=== PATIENT | female | born 1955 | race Caucasian/White ===

== ENCOUNTER 2017-11-15 15:13 | Emergency (ER) | payer MEDICARE ==
[2017-11-25 12:01] VITALS: BMI 34.3
== END 2017-11-15 17:30 | disposition home or self-care (01) ==
LOC: D.ER 15:13
DX: M25.552 Pain in left hip (principal); W19.XXXA Unspecified fall, initial encounter; Y93.89 Activity, other specified; Y92.019 Unspecified place in single-family (private) house as the place of occurrence of the external cause

== ENCOUNTER 2017-11-18 12:01 | Inpatient (IN) | payer MEDICARE ==
[~2017-11-18] VITALS: Ht 170.2 cm; Wt 99.5 kg
[2017-11-18 15:21] LABS: BASOPHILS 0.1 % (0-2); EOSINOPHILS 2.3 % (0-7); HEMATOCRIT 43.5 % (36.0-48.0); HEMOGLOBIN 14.5 g/dL (12-16); IMMATURE GRANULOCYTES 0.2 % (0-5); LYMPHOCYTES 12.8 % (15-50); MCH 32.6 pg (26.0-34.0); MCHC 33.3 g/dL (31.0-37.0); MCV 97.8 fL (80.0-100.0); MEAN PLATELET VOLUME 10.5 fL (7.4-10.4); MONOCYTES 5.5 % (2-11); NEUTROPHILS 79.1 % (40-80); PLATELET COUNT 216 10x3/uL (130-400); RBC 4.45 10x6/uL (4.00-5.40); RDW 13.4 % (11.5-14.5); WBC 12.8 10x3/uL (4.8-10.8)
[2017-11-18 15:29] LABS: APTT 28.4 SECONDS (22.8-39.4); INR 1.02 (0.85-1.17)
[2017-11-18 15:36] LABS: ALBUMIN 3.6 g/dL (3.4-5.0); ALKALINE PHOSPHATASE 84 U/L (46-116); ALT (SGPT) 35 U/L (10-68); BILIRUBIN - TOTAL 0.42 mg/dL (0.2-1.3); CALC OSMOLALITY 282 mosm/kg (275-300); CALCIUM 9.9 mg/dL (8.5-10.1); CARBON DIOXIDE 28.9 mmol/L (21.0-32.0); CHLORIDE - SERUM 104 mmol/L (98-107); CREATININE - SERUM 0.6 mg/dL (0.6-1.3); GLUCOSE 106 mg/dL (74-106); POTASSIUM - SERUM 3.6 mmol/L (3.5-5.1); PROTEIN - SERUM 7.6 g/dL (6.4-8.2); SODIUM 142 mmol/L (136-145); UREA NITROGEN 13 mg/dL (7-18); eGFR NON AFRICAN AMERICAN > 90 mL/min (90-120)
[2017-11-18] MEDS ORDERED: ATIVAN0.5 MG PO (18:07)
[2017-11-18] MEDS ORDERED: ZOLOFT100 MG PO (18:09)
[2017-11-18] MEDS ORDERED: ASCORBIC ACID500 MG PO (18:10)
[2017-11-18] MEDS ORDERED: K-DUR20 MEQ PO (18:20)
[2017-11-18] MEDS ORDERED: DETROL LA4 MG PO (18:20)
[2017-11-18] MEDS ORDERED: FER-IN-SOL DROP50 ML PO (18:21)
[2017-11-18] MEDS ORDERED: SINEQUAN25 MG PO (18:21)
[2017-11-18] MEDS ORDERED: FUROSEMIDE40 MG PO (18:22)
[2017-11-18] MEDS ORDERED: BENADRYL25 MG PO (18:23)
[2017-11-19] VITALS (10 sets, daily range): BP systolic 103–128; BP diastolic 62–84; Ht 170.2 cm; Wt 99.5 kg
[2017-11-19 06:33] LABS: BASOPHILS 0.1 % (0-2); EOSINOPHILS 0 % (0-7); HEMATOCRIT 39.4 % (36.0-48.0); HEMOGLOBIN 12.8 g/dL (12-16); IMMATURE GRANULOCYTES 0.4 % (0-5); LYMPHOCYTES 3.7 % (15-50); MCH 32.4 pg (26.0-34.0); MCHC 32.5 g/dL (31.0-37.0); MCV 99.7 fL (80.0-100.0); MEAN PLATELET VOLUME 10.5 fL (7.4-10.4); NEUTROPHILS 92.8 % (40-80); PLATELET COUNT 205 10x3/uL (130-400); RBC 3.95 10x6/uL (4.00-5.40); RDW 13.6 % (11.5-14.5); WBC 13.9 10x3/uL (4.8-10.8)
[2017-11-19 06:53] LABS: CALCIUM 9.3 mg/dL (8.5-10.1); CARBON DIOXIDE 28.4 mmol/L (21.0-32.0); CHLORIDE - SERUM 105 mmol/L (98-107); POTASSIUM - SERUM 3.8 mmol/L (3.5-5.1); SODIUM 141 mmol/L (136-145); UREA NITROGEN 15 mg/dL (7-18); eGFR NON AFRICAN AMERICAN 77 mL/min (90-120)
[2017-11-19 07:01] LABS: CALC OSMOLALITY 288 mosm/kg (275-300); CREATININE - SERUM 0.8 mg/dL (0.6-1.3); GLUCOSE 224 mg/dL (74-106)
--- NOTE | 2017-11-19 14:49 | OP ---
PATIENT NAME: KJ BRADLEY B MEDICAL RECORD: [id number] :57 LOCATION:[facility] D.2312 ADMISSION DATE:11/18/17 SURGEON: JE HILTON DO DATE OF OPERATION: 11/18/2017 DATE OF SURGERIES: Began 11/18/2017 and finished on 11/19/2017. PROCEDURE PERFORMED: Left femur retrograde IM nail. PREOPERATIVE DIAGNOSIS: Displaced left distal femur fracture. POSTOPERATIVE DIAGNOSIS: Displaced left distal femur fracture. INDICATIONS: Ms. Bradley is a 61-year-old female who lives alone; however, she does have some special needs, she does have caretakers mostly during the day. She fell today and fractured her distal femur on the left side. She is in significant amount of pain and was taken to the ER. After this was done, the patient was seen to have a femur fracture and as discussed planned to get it fixed. She will be nonweightbearing on it. SURGEON: Je Hilton DO COMPLICATIONS: None. BLOOD LOSS: Approximately 300 mL. DESCRIPTION OF PROCEDURE: The patient was taken to the operative suite, laid in supine position, given general anesthetic. The left lower extremity was prepped and draped in sterile fashion. After this was done, a timeout was performed, it was agreed to correct side, site, and patient. We then commenced imaging to get a closed reduction, which was not successful. I then did an incision from the inferior border of the patella straight down through the patellar tendon and then excised the fat pad. We got a starting point on the distal femur that it was in good position with the guide pin and then a reduction tool was used to get the reduction. After this was done, the guide wire was then placed up to the lesser trochanter and a measurement was made to be 320 mm nail. We then reamed up to a 12 and put the nail in, the fracture displaced. We then reamed higher and then start to put a smaller nail in. First nail was 10.5 and then I put a 9 nail in and the fracture did not displace as much. I got a distal screw in and due to the fracture, it was the only screw we can put in. We then tried to hold the reduction and get a proximal screw, which was not achieved and we did open the incision and then put a clamp over the fracture site to get it somewhat reduced. Once this was done, a proximal screw was then put in the nail. After the proximal screw was put in nail, a cable was placed around the fracture site in order to get a better reduction at the fracture site. This was very comminuted. After getting the cable tightened down and crimped down, I had a better reduction than previous to putting the cable. X-rays were taken and confirmed this. The opening to reduce the fracture was on the lateral side of the femur. We then irrigated thoroughly all the incision sites. The wound inferiorly to the patellar tendon itself was closed with 0 Vicryl in the paratenon and then the skin was closed with 2-0 Vicryl in inverted interrupted fashion and 4-0 Monocryl in a horizontal mattress fashion. The large incision on the lateral side was irrigated thoroughly and vancomycin powder was put into it and then the IT band was closed with 0 Vicryl in a [id number] fashion and then the skin was closed with 2-0 Vicryl inverted interrupted and then a OPERATIVE REPORT [id number] KJ BRADLEY B ZipLine was placed over that. The other focal incisions were closed with 2-0 Vicryl in inverted interrupted fashion and then 4-0 Monocryl in a horizontal mattress fashion. They were then dressed with Adaptic, 4 x 4s and Tegaderm and then over the ZipLine on the lateral side with Adaptic, 4 x 4s and Tegaderm as well. We then put a 6-inch Arjun over the leg and after it was cleaned thoroughly and then placed the patient in a knee immobilizer. The patient was then awakened and taken to recovery room in stable condition. TRANSINT:[id number] Voice Confirmation ID: [id number] DOCUMENT ID: [id number] JE HILTON DO at 1449 CC: [id number] DICTATION DATE: 11/19/17314 TIME STUDY TECHNICIAN: 11/19/17 0757 [facility] IN [place] [id number] [place] [address]
[2017-11-20] VITALS (7 sets, daily range): BP systolic 107–139; BP diastolic 63–87
[2017-11-20 03:31] LABS: BASOPHILS 0.1 % (0-2); EOSINOPHILS 0.5 % (0-7); HEMATOCRIT 34.3 % (36.0-48.0); HEMOGLOBIN 10.8 g/dL (12-16); IMMATURE GRANULOCYTES 0.3 % (0-5); LYMPHOCYTES 9.9 % (15-50); MCHC 31.5 g/dL (31.0-37.0); MEAN PLATELET VOLUME 10.4 fL (7.4-10.4); NEUTROPHILS 81.2 % (40-80); PLATELET COUNT 191 10x3/uL (130-400); RBC 3.37 10x6/uL (4.00-5.40); RDW 13.8 % (11.5-14.5)
[2017-11-20 03:32] LABS: MCV 101.8 fL (80.0-100.0); WBC 10.4 10x3/uL (4.8-10.8)
[2017-11-20 03:45] LABS: CALCIUM 8.3 mg/dL (8.5-10.1); CARBON DIOXIDE 33.1 mmol/L (21.0-32.0); CHLORIDE - SERUM 110 mmol/L (98-107); POTASSIUM - SERUM 3.3 mmol/L (3.5-5.1); SODIUM 144 mmol/L (136-145)
[2017-11-20 03:49] LABS: CALC OSMOLALITY 287 mosm/kg (275-300); CREATININE - SERUM 0.5 mg/dL (0.6-1.3); GLUCOSE 126 mg/dL (74-106); UREA NITROGEN 10 mg/dL (7-18); eGFR NON AFRICAN AMERICAN > 90 mL/min (90-120)
[2017-11-21] VITALS: BP 125/77
[2017-11-21 04:00] VITALS: BP 136/69
[2017-11-21 06:46] LABS: BASOPHILS 0.1 % (0-2); EOSINOPHILS 2.8 % (0-7); HEMATOCRIT 33.1 % (36.0-48.0); HEMOGLOBIN 10.5 g/dL (12-16); IMMATURE GRANULOCYTES 0.3 % (0-5); LYMPHOCYTES 14.2 % (15-50); MCH 32.3 pg (26.0-34.0); MCHC 31.7 g/dL (31.0-37.0); MCV 101.8 fL (80.0-100.0); MEAN PLATELET VOLUME 10.6 fL (7.4-10.4); MONOCYTES 7.8 % (2-11); NEUTROPHILS 74.8 % (40-80); PLATELET COUNT 203 10x3/uL (130-400); RBC 3.25 10x6/uL (4.00-5.40); RDW 13.6 % (11.5-14.5); WBC 10.5 10x3/uL (4.8-10.8)
[2017-11-21 07:11] LABS: CALC OSMOLALITY 288 mosm/kg (275-300); CARBON DIOXIDE 35.2 mmol/L (21.0-32.0); CHLORIDE - SERUM 104 mmol/L (98-107); CREATININE - SERUM 0.5 mg/dL (0.6-1.3); GLUCOSE 155 mg/dL (74-106); POTASSIUM - SERUM 3.2 mmol/L (3.5-5.1); SODIUM 144 mmol/L (136-145); UREA NITROGEN 9 mg/dL (7-18); eGFR NON AFRICAN AMERICAN > 90 mL/min (90-120)
[2017-11-21 08:38] VITALS: BP 117/70
[2017-11-21 12:09] VITALS: BP 106/62
[2017-11-21] MEDS ORDERED: LOVENOX40 MG/0.4 SC (14:06)
[2017-11-21] MEDS ORDERED: OXYCODONE HCL5 MG PO (14:07)
[2017-11-21] MEDS ORDERED: DILAUDID INJ2 MG/ML IV (14:07)
[2017-11-21] MEDS ORDERED: ZOFRAN4 MG PO (14:08)
[2017-11-21] MEDS ORDERED: COLACE100 MG PO (14:08)
[2017-11-21 16:20] VITALS: BP 128/72
== END 2017-11-21 18:07 | DRG 481 ==
LOC: D.ER 12:01 → D.ICU 16:27 → D.MS 16:27 → D.ICU 11-19 04:47 → D.MS 11-20 13:59
PROVIDERS: Emergency Medicine; Orthopaedic Surgery; ADMIT Emergency Medicine
PROC: 0QS906Z Reposition Left Femoral Shaft with Intramedullary Internal Fixation Device, Open Approach (ICD-10-PCS; principal; 2017-11-18 21:00)
DX: S72.452A Displaced supracondylar fracture without intracondylar extension of lower end of left femur, initial encounter for closed fracture (principal); D62 Acute posthemorrhagic anemia; W19.XXXA Unspecified fall, initial encounter; F41.8 Other specified anxiety disorders; F17.200 Nicotine dependence, unspecified, uncomplicated

== ENCOUNTER 2017-11-21 18:13 | Inpatient (IN) | payer MEDICARE ==
[~2017-11-21] VITALS: Ht 170.2 cm; Wt 99.3 kg
--- NOTE | ~2017-11-21 | RHP ---
PATIENT: KJ BRADLEY B MEDICAL RECORD: [id number] ACCOUNT: [id number] LOCATION:[facility]1108 : 57 ADMISSION DATE: 11/21/17 REHABILITATION HISTORY AND PHYSICAL EXAMINATION POST ADMISSION PHYSICIAN EXAMINATION POST-ADMISSION PHYSICAL EXAM AND HISTORY AND PHYSICAL DATE OF ADMISSION TO THE REHAB: 11/21/2017 ADMITTING DIAGNOSIS: Status post left distal femur fracture. HISTORY OF PRESENT ILLNESS: The patient admitted to inpatient rehab with a distal femur fracture. She is a 61-year-old female patient, presented to the Emergency Room after falling. She lives in a half-way, is mentally challenged, not able to bear weight on her left leg. She did not really remember how it happened. X-rays and CT showed a distal femur fracture. She has had repair in the OR and was moved to ICU postoperatively secondary to slow response of weaning off anesthesia. She has complained of some pain postoperatively. She is now on the medical surgical floor. She had noticed some postop blood loss anemia, has been on telemetry, receiving special need secondary to her being somewhat mentally challenged. She was not able to bear weight on her leg once again and now she has had repair done by us and is doing well postoperatively. COMORBIDITIES: Include tobacco use, mental retardation, acute pain, blood loss anemia, fracture of distal femur, falls, hypoxia, shortness of breath, electrolyte imbalance, impaired skin integrity, aspiration, infection, fatigue. PAST MEDICAL HISTORY: Significant for depression, anxiety, mental retardation, UTI, urinary incontinence and tobacco use. PAST SURGICAL HISTORY: Includes surgery on her legs. ALLERGIES: No known drug allergies. MEDICATIONS: Current medications include Detrol 4 mg daily, potassium 20 mEq daily, furosemide 40 mg daily. She is on Lovenox 40 mg subQ daily, vitamin C 500 mg daily, Zoloft 100 mg at bedtime, OxyIR 10 mg q.4 hours p.r.n., Zofran 4 mg q.4 hours as needed, Ativan 0.5 mg b.i.d., Dilaudid 0.5 mg q.3 hours p.r.n., Colace 100 mg b.i.d., Benadryl 25 mg q.4 hours p.r.n., and MiraLax 17 grams in 8 ounces of water daily. HABITS: Does have a history of tobacco use. FAMILY HISTORY: Noncontributory. SOCIAL HISTORY: The patient lives in a half-way secondary to her mental retardation. REVIEW OF SYSTEMS: GENERAL: She denies weakness or fatigue. HEENT: She denies cold, cough, or congestion. CARDIOVASCULAR: Denies chest pain. HISTORY AND PHYSICAL [id number] KJ BRADLEY B PHYSICAL EXAMINATION: VITAL SIGNS: Stable, afebrile. GENERAL: A somewhat obese female in no acute distress, alert upon exam. HEENT: Normocephalic and atraumatic. Mucosa moist. NECK: Supple. No lymphadenopathy. LUNGS: Clear. HEART: Regular rate and rhythm. ABDOMEN: Benign. EXTREMITIES: Postop swelling, appears normal. NEUROLOGIC: Definitely has some challenges with mental retardation. LABORATORY DATA: Her white count is 10.5, H&H 10.7 and 33.9. Her MCV is 101.5. Her platelet count is 224. Sodium 143, potassium 3.4, BUN and creatinine of 9 and 0.4, blood sugar is noted to be 118. ASSESSMENT: This is a 61-year-old female patient admitted to rehab with a working diagnosis of left femur fracture. The patient has potential to make improvement. We will institute the following multidisciplinary therapies including to, but not limited to physical, occupational, respiratory, speech, nutritional services, prosthetics and orthotics. Given her complex condition and risk for more complications, rehabilitation services cannot be provided at a low level of care such as a fpc facility. PLAN: 1. Admit to [facility] rehab for intensive inpatient therapy to include the following disciplines: A. Physical therapy to improve gait, all transfer skills and bed mobility to a modified level. B. Occupational therapy to improve activities of daily living to a modified independent level. C. Case management to assist with discharge planning and placement options. D. Nutrition to assist with nutritional needs. E. Rehabilitation nursing to assist in monitoring the patient's underlying medical conditions and to assist with any type of bowel or bladder management. 2. The patient's current medications and medical care will be continued. 3. The patient will be placed on standard fall precautions. 4. We will watch her blood counts closely. 5. We will discuss this patient during care team staff meeting this week. 6. I will follow her up on Friday a.m. TRANSINT:[id number] Voice Confirmation ID: [id number] DOCUMENT ID: [id number] CHAYITO notes whether there has been none or any medical/functional change since admission: - No change since prescreen. CHAYITO attests patient continues to be appropriate for IRF: - Continues to be appropriate. HISTORY AND PHYSICAL [id number] KJ BRADLEY B ERWIN, SCOTT MD at 1838 CC: [id number] DICTATION DATE: 11/22/17 1030 GUM COOK: 11/22/17 1054 ADM IN [place] [id number] [place] [address]
[~2017-11-21 18:13] MED LIST: ASCORBIC ACID500 MG PO; ATIVAN0.5 MG PO; BENADRYL25 MG PO; COLACE100 MG PO; DETROL LA4 MG PO; DILAUDID INJ2 MG/ML IV; FER-IN-SOL DROP50 ML PO; FUROSEMIDE40 MG PO; K-DUR20 MEQ PO; LOVENOX40 MG/0.4 SC; OXYCODONE HCL5 MG PO; SINEQUAN25 MG PO; ZOFRAN4 MG PO; ZOLOFT100 MG PO
[2017-11-21 22:12] VITALS: BP 111/64; BMI 34.4
[2017-11-22 06:52] LABS: BASOPHILS 0.2 % (0-2); EOSINOPHILS 3.9 % (0-7); HEMATOCRIT 33.9 % (36.0-48.0); HEMOGLOBIN 10.7 g/dL (12-16); IMMATURE GRANULOCYTES 0.3 % (0-5); LYMPHOCYTES 13.9 % (15-50); MCHC 31.6 g/dL (31.0-37.0); MCV 101.5 fL (80.0-100.0); MEAN PLATELET VOLUME 10.9 fL (7.4-10.4); MONOCYTES 7.7 % (2-11); PLATELET COUNT 224 10x3/uL (130-400); RBC 3.34 10x6/uL (4.00-5.40); RDW 13.6 % (11.5-14.5); WBC 10.5 10x3/uL (4.8-10.8)
[2017-11-22 07:08] LABS: CALC OSMOLALITY 284 mosm/kg (275-300); CALCIUM 9.3 mg/dL (8.5-10.1); CARBON DIOXIDE 36.2 mmol/L (21.0-32.0); CHLORIDE - SERUM 103 mmol/L (98-107); CREATININE - SERUM 0.4 mg/dL (0.6-1.3); GLUCOSE 118 mg/dL (74-106); POTASSIUM - SERUM 3.4 mmol/L (3.5-5.1); SODIUM 143 mmol/L (136-145); UREA NITROGEN 9 mg/dL (7-18); eGFR NON AFRICAN AMERICAN > 90 mL/min (90-120)
[2017-11-22 08:33] VITALS: BP 111/70
[2017-11-22 19:26] VITALS: BP 125/64
[2017-11-23 08:40] VITALS: BP 105/66
[2017-11-23 19:18] VITALS: BP 128/58
[2017-11-24 07:23] LABS: BASOPHILS 0.2 % (0-2); EOSINOPHILS 5.1 % (0-7); HEMATOCRIT 33.2 % (36.0-48.0); HEMOGLOBIN 10.6 g/dL (12-16); IMMATURE GRANULOCYTES 0.7 % (0-5); LYMPHOCYTES 17.6 % (15-50); MCH 31.9 pg (26.0-34.0); MCHC 31.9 g/dL (31.0-37.0); MEAN PLATELET VOLUME 11.2 fL (7.4-10.4); MONOCYTES 9.1 % (2-11); NEUTROPHILS 67.3 % (40-80); RBC 3.32 10x6/uL (4.00-5.40); RDW 13.5 % (11.5-14.5); WBC 9.5 10x3/uL (4.8-10.8)
[2017-11-24 07:33] LABS: PLATELET COUNT 284 10x3/uL (130-400)
[2017-11-24 07:43] LABS: CALC OSMOLALITY 284 mosm/kg (275-300); CALCIUM 9.5 mg/dL (8.5-10.1); CARBON DIOXIDE 34.2 mmol/L (21.0-32.0); CHLORIDE - SERUM 102 mmol/L (98-107); CREATININE - SERUM 0.5 mg/dL (0.6-1.3); GLUCOSE 109 mg/dL (74-106); POTASSIUM - SERUM 3.3 mmol/L (3.5-5.1); SODIUM 143 mmol/L (136-145); UREA NITROGEN 10 mg/dL (7-18); eGFR NON AFRICAN AMERICAN > 90 mL/min (90-120)
[2017-11-24 09:52] VITALS: BP 121/62
[2017-11-24 21:42] VITALS: BP 106/61
[2017-11-25 10:30] VITALS: BP 106/67
[2017-11-25 12:01] VITALS: Ht 170.2 cm; Wt 99.3 kg
[2017-11-25 19:50] VITALS: BP 97/54
[2017-11-26 07:55] LABS: BASOPHILS 0.2 % (0-2); EOSINOPHILS 5.3 % (0-7); HEMATOCRIT 34.1 % (36.0-48.0); HEMOGLOBIN 10.9 g/dL (12-16); IMMATURE GRANULOCYTES 0.8 % (0-5); LYMPHOCYTES 17.5 % (15-50); MEAN PLATELET VOLUME 10.8 fL (7.4-10.4); MONOCYTES 8.6 % (2-11); NEUTROPHILS 67.6 % (40-80); PLATELET COUNT 321 10x3/uL (130-400); RBC 3.41 10x6/uL (4.00-5.40); RDW 13.5 % (11.5-14.5)
[2017-11-26 08:04] LABS: CALC OSMOLALITY 278 mosm/kg (275-300); CALCIUM 9.3 mg/dL (8.5-10.1); CARBON DIOXIDE 32.4 mmol/L (21.0-32.0); CHLORIDE - SERUM 103 mmol/L (98-107); CREATININE - SERUM 0.6 mg/dL (0.6-1.3); GLUCOSE 129 mg/dL (74-106); POTASSIUM - SERUM 3.7 mmol/L (3.5-5.1); SODIUM 140 mmol/L (136-145); UREA NITROGEN 8 mg/dL (7-18); eGFR NON AFRICAN AMERICAN > 90 mL/min (90-120)
[2017-11-26 09:01] VITALS: BP 139/72
[2017-11-26 21:45] VITALS: BP 115/65; BP 87/46
[2017-11-27 08:15] VITALS: BP 105/68
[2017-11-27 19:17] VITALS: BP 111/63
[2017-11-28 06:21] LABS: BASOPHILS 0.2 % (0-2); EOSINOPHILS 4.6 % (0-7); HEMATOCRIT 34.2 % (36.0-48.0); HEMOGLOBIN 10.9 g/dL (12-16); IMMATURE GRANULOCYTES 0.7 % (0-5); LYMPHOCYTES 17.2 % (15-50); MCH 31.7 pg (26.0-34.0); MCHC 31.9 g/dL (31.0-37.0); MCV 99.4 fL (80.0-100.0); MEAN PLATELET VOLUME 10.6 fL (7.4-10.4); MONOCYTES 7.6 % (2-11); NEUTROPHILS 69.7 % (40-80); PLATELET COUNT 347 10x3/uL (130-400); RBC 3.44 10x6/uL (4.00-5.40); RDW 13.5 % (11.5-14.5); WBC 9.6 10x3/uL (4.8-10.8)
[2017-11-28 06:32] LABS: CALC OSMOLALITY 278 mosm/kg (275-300); CALCIUM 9.7 mg/dL (8.5-10.1); CARBON DIOXIDE 32.9 mmol/L (21.0-32.0); CHLORIDE - SERUM 103 mmol/L (98-107); CREATININE - SERUM 0.5 mg/dL (0.6-1.3); GLUCOSE 115 mg/dL (74-106); SODIUM 140 mmol/L (136-145); UREA NITROGEN 9 mg/dL (7-18); eGFR NON AFRICAN AMERICAN > 90 mL/min (90-120)
[2017-11-28 08:00] VITALS: BP 107/59
[2017-11-28 19:11] VITALS: BP 123/69
[2017-11-29 08:27] VITALS: BP 107/58
[2017-11-29 19:45] VITALS: BP 110/53
[2017-11-30 08:04] VITALS: BP 110/59
[2017-11-30 19:45] VITALS: BP 111/65
[2017-12-01 08:00] VITALS: BP 114/65
[2017-12-01 19:34] VITALS: BP 119/62
[2017-12-02 08:04] LABS: BASOPHILS 0.2 % (0-2); EOSINOPHILS 4.7 % (0-7); HEMOGLOBIN 10.9 g/dL (12-16); IMMATURE GRANULOCYTES 0.3 % (0-5); LYMPHOCYTES 15.3 % (15-50); MCH 32.1 pg (26.0-34.0); MCHC 32.1 g/dL (31.0-37.0); MEAN PLATELET VOLUME 10.3 fL (7.4-10.4); MONOCYTES 6.2 % (2-11); NEUTROPHILS 73.3 % (40-80); PLATELET COUNT 403 10x3/uL (130-400); RDW 13.9 % (11.5-14.5); WBC 8.6 10x3/uL (4.8-10.8)
[2017-12-02 08:28] LABS: CALC OSMOLALITY 284 mosm/kg (275-300); CALCIUM 9.4 mg/dL (8.5-10.1); CARBON DIOXIDE 31.5 mmol/L (21.0-32.0); CHLORIDE - SERUM 104 mmol/L (98-107); CREATININE - SERUM 0.5 mg/dL (0.6-1.3); GLUCOSE 109 mg/dL (74-106); POTASSIUM - SERUM 3.8 mmol/L (3.5-5.1); SODIUM 143 mmol/L (136-145); UREA NITROGEN 9 mg/dL (7-18); eGFR NON AFRICAN AMERICAN > 90 mL/min (90-120)
[2017-12-02 08:36] VITALS: BP 102/59
[2017-12-02 21:45] VITALS: BP 98/61
[2017-12-03 07:54] VITALS: BP 121/67
[2017-12-03 20:00] VITALS: BP 123/56
[2017-12-04 08:29] VITALS: BP 99/61
[2017-12-04 19:45] VITALS: BP 111/75
[2017-12-05 06:58] LABS: BASOPHILS 0.3 % (0-2); EOSINOPHILS 5.2 % (0-7); HEMATOCRIT 36.9 % (36.0-48.0); HEMOGLOBIN 11.7 g/dL (12-16); IMMATURE GRANULOCYTES 0.3 % (0-5); LYMPHOCYTES 22.8 % (15-50); MCHC 31.7 g/dL (31.0-37.0); MCV 100.8 fL (80.0-100.0); MEAN PLATELET VOLUME 10.4 fL (7.4-10.4); MONOCYTES 5.9 % (2-11); NEUTROPHILS 65.5 % (40-80); PLATELET COUNT 431 10x3/uL (130-400); RBC 3.66 10x6/uL (4.00-5.40); RDW 14.1 % (11.5-14.5); WBC 7.5 10x3/uL (4.8-10.8)
[2017-12-05 07:13] LABS: CALC OSMOLALITY 278 mosm/kg (275-300); CALCIUM 9.8 mg/dL (8.5-10.1); CARBON DIOXIDE 30.7 mmol/L (21.0-32.0); CHLORIDE - SERUM 101 mmol/L (98-107); CREATININE - SERUM 0.4 mg/dL (0.6-1.3); GLUCOSE 94 mg/dL (74-106); POTASSIUM - SERUM 4.4 mmol/L (3.5-5.1); SODIUM 141 mmol/L (136-145); UREA NITROGEN 6 mg/dL (7-18); eGFR NON AFRICAN AMERICAN > 90 mL/min (90-120)
[2017-12-05 08:00] VITALS: BP 126/66
[2017-12-05] MEDS ORDERED: OXYCODONE HCL5 MG PO (09:02)
[2017-12-05] MEDS ORDERED: ATIVAN0.5 MG PO (09:02)
== END 2017-12-05 18:01 | DRG 534 ==
LOC: D.REHAB 18:13
PROVIDERS: Emergency Medicine
DX: S72.402A Unspecified fracture of lower end of left femur, initial encounter for closed fracture (principal); D62 Acute posthemorrhagic anemia; W19.XXXA Unspecified fall, initial encounter; F17.200 Nicotine dependence, unspecified, uncomplicated; F79 Unspecified intellectual disabilities; R09.02 Hypoxemia; R06.02 Shortness of breath; E87.8 Other disorders of electrolyte and fluid balance, not elsewhere classified; R53.83 Other fatigue; B99.9 Unspecified infectious disease

== ENCOUNTER → 2018-08-18 17:52 | Outpatient (CLI) | payer MEDICARE ==
[2017-11-25 12:01] VITALS: BMI 34.3
== END | disposition home or self-care (01) ==
LOC: D.MAMMO 10:45
DX: Z12.31 Encounter for screening mammogram for malignant neoplasm of breast (principal)

== ENCOUNTER 2019-11-14 16:20 | Emergency (ER) | payer MEDICARE ==
[2019-11-14 16:30] VITALS: Ht 170.2 cm
[2019-11-14] MEDS ORDERED: POLYSPORIN OINT15 G1 TOPICAL (17:57)
[2019-11-14 18:07] VITALS: BP 120/60
== END 2019-11-14 18:09 | disposition home or self-care (01) ==
LOC: D.ER 16:20
DX: T65.91XA Toxic effect of unspecified substance, accidental (unintentional), initial encounter (principal); T21.43XA Corrosion of unspecified degree of upper back, initial encounter; T22.40XA Corrosion of unspecified degree of shoulder and upper limb, except wrist and hand, unspecified site, initial encounter; Y93.9 Activity, unspecified